=== PATIENT | male | born 1995 | race Caucasian/White ===

== ENCOUNTER 2020-04-02 20:50 | Emergency (ER) | payer OTHER, SELFPAY ==
[2020-04-02 20:50] VITALS: BP 94/65; PULSE 90; RESP 20; TEMP 36.7; O2SAT 96; BMI 25.8
--- NOTE | 2020-04-02 21:12 | DI.RAD.S_ITS ---
PROCEDURE: XR CHEST 2V INDICATIONS: cough TECHNIQUE: 2 views of the chest were acquired. COMPARISON: None. FINDINGS: Surgical changes and devices: None. Lungs and pleura: Lungs are clear. No pleural effusions or pneumothorax. Mediastinum: Mediastinal contours are normal. Heart size is normal. Bones and chest wall: No suspicious bony abnormalities. Soft tissues appear unremarkable. IMPRESSION: No acute cardiopulmonary pathology. Dictated by: Clifton Goetz M.D. on 04/02/2020 at 22:02 Approved by: Clifton Goetz M.D. on 04/02/2020 at 22:02
--- NOTE | 2020-04-02 22:39 | ED_ITS ---
HPI - URI/Sore Throat General Chief Complaint: Upper Respiratory Symptoms Stated Complaint: headache, cough Time Seen by Provider: 04/02/20 21:13 Source: patient Mode of arrival: Ambulatory History of Present Illness HPI Narrative: 24-year-old gentleman with a history of mild tobacco abuse presents with a week of cough not getting better. He was seen at an urgent care clinic yesterday and prescribed antibiotics for which he has now had 2 doses. Describes his cough as dry and irritating and often waking him up at night. He does not give a significant history reactive airway disease as a child and does not use inhalers currently. Related Data Previous Rx's Medication Instructions Recorded prednisone 20 mg PO DAILY #7 tab 04/02/20 Allergies Allergy/AdvReac Type Severity Reaction Status Date / Time No Known Drug Allergies Allergy Verified 04/02/20 21:49 Review of Systems Review of Systems Narrative: Pertinent positive and negative findings as per HPI Remainder of review of systems is otherwise unremarkable for Constitutional: Fevers, chills, weakness ENT: No sore throat, neck pain, ear pain CV: Chest pain, palpitations, GI: Nausea, vomiting, diarrhea, : Dysuria, hematuria, flank pain MS: Muscle weakness, numbness, joint swelling or warmth Skin: Rashes, nonhealing lesions Patient History Social History Smoking Status: Current some day smoker Smoking Status: Current some day smoker Substance Use Type: does not use Exam Narrative Exam Narrative: General: Healthy appearing, in no acute distress. Able to give a complete and coherent history. Well-nourished well-developed HEENT: Moist mucous membranes, normal sclera with reactive pupils, Respiratory: Lungs with scattered mild wheeze and airway popping noted more in the right axilla without over rhonchi. Full and symmetrical air movement Cardiac: Regular rate and rhythm no murmurs no bruits Abdomen: Soft nontender good bowel tones, no flank pain Skin: Warm and dry, no rashes Neurologic: Grossly neurologically intact with no obvious asymmetries or abnormalities Extremities: No trauma, well perfused Psych: Cooperative, appropriate insight and affect Initial Vital Signs Initial Vital Signs: Vital Signs Temperature 98.0 F 04/02/20 20:50 Pulse Rate 90 04/02/20 20:50 Respiratory Rate 20 04/02/20 20:50 Blood Pressure 94/65 04/02/20 20:50 Pulse Oximetry 96 04/02/20 20:50 Course Orders Ordered: ED Orders 04/02/20 21:12 Chest [XR chest 2V] Stat Discontinued Medications Prednisone (Deltasone) 40 mg PO NOW ONE Stop: 04/02/20 22:36 Last Admin: 04/02/20 22:41 Dose: 40 mg Documented by: [email or web address] Vital Signs Vital signs: Vital Signs - 8 hr 04/02/20 20:50 Temperature 98.0 F Pulse Rate 90 Respiratory Rate 20 Blood Pressure 94/65 Pulse Oximetry 96 [facility] - URI/Sore Throat Imaging Data Chest x-ray: Radiologist's Impression: FINDINGS: Surgical changes and devices: None. Lungs and pleura: Lungs are clear. No pleural effusions or pneumothorax. Mediastinum: Mediastinal contours are normal. Heart size is normal. Bones and chest wall: No suspicious bony abnormalities. Soft tissues appear unremarkable. IMPRESSION: No acute cardiopulmonary pathology. Dictated by: Clifton Goetz M.D. on 04/02/2020 at 22:02 [facility] Narrative Medical decision making narrative: 24-year-old gentleman likely with viral upper respiratory syndrome that is [place] id negative. He was started on antibiotics by an outside provider so will asking to go ahead and finish the is a started. With this scattered wheezing and popping throughout I suspect that there is a very mild reactive airway disease component of will add 7 days of prednisone to his already prescribed antibiotics. There is no evidence of severe pneumonia, pleural effusion, sepsis or cardiac syndrome. He is safe for home discharge at this time. Discharge Plan Departure Patient Disposition: Home Clinical Impression: Bronchitis RAD (reactive airway disease) Qualifiers: Asthma severity: mild Asthma persistence: unspecified Qualified Code(s): J45.909 - Unspecified asthma, uncomplicated Instructions: DI for Bronchiolitis Activity Restrictions/Additional Instructions: Thank you for coming in today Your chest x-ray does not show an obvious pneumonia. There does appear to be a moderate amount of inflammation that goes along with the dry cough and probable mild reactive airway component to this upper respiratory infection. Please finish the antibiotics that you are already started. To this, please add 20 mg of prednisone daily for 7 days. This will help with the inflammation and hopefully make that dry cough less irritable for you. If you have worsening symptoms, please feel free to return to the emergency department. I hope you heal quickly. Prescriptions: New prednisone 20 mg tablet 20 mg PO DAILY Qty: 7 RF: 0
[2020-04-02] MEDS: predniSONE 20 MG TABLET 40 MG PO (22:41)
== END 2020-04-02 22:43 | disposition home or self-care (01) ==
PROVIDERS: Emergency Provider Emergency Medicine
DX: J45.909 Unspecified asthma, uncomplicated (principal)
CPT/HCPCS: 71046; 99283

== ENCOUNTER 2020-04-16 10:14 | Emergency (ER) | payer OTHER, SELFPAY ==
[2020-04-16] VITALS (8 sets, daily range): BP systolic 115–127; BP diastolic 66–84; PULSE 75–120; RESP 14–22; TEMP 36.6; O2SAT 93–98; BMI 26.2
--- NOTE | 2020-04-16 10:38 | ED_ITS ---
HPI - SOB/Dyspnea General Chief Complaint: Shortness of Breath/Dyspnea Stated Complaint: upper resp issue Time Seen by Provider: 04/16/20 10:21 Source: patient Mode of arrival: Ambulatory Limitations: no limitations History of Present Illness HPI Narrative: This is a 24-year-old male who comes to the emergency department with several weeks of cough and intermittent shortness of breath. Patient was seen here on April 02 he states had a week or so of cough with some chest congestion had a COVID test and chest x-ray and was discharged home with steroids. He had already been started on antibiotics and was recommended to continue those which he also completed. Patient states while he was taking steroids he has felt significantly better. He finished those several days ago and has started to notice that he continues to have cough, it is mildly productive typically with clearish white sputum. He has also noted that it is worse when he lays flat at night and that he feels more short of breath when he lays flat at night. He states that when he is up and ambulating occasionally he will feel short of breath but typically he does not. He has not had any fevers. He has had some mild nasal congestion. He does think he has had some postnasal drip but it is also intermittent. He does not associated with the cough. Patient has not had any other GI or urinary symptoms. He has not had any swelling in his upper lower extremities. He denies any other medical issues, no prior asthma or pulmonary issues. He denies any prior surgeries. He does smoke a cigarette in the morning and the evening. Denies regular alcohol use or any illicit drugs. No family history of cardiac, pulmonary embolic. He has not had any long distance travel, prolonged immobilization. He has had several coworkers who had somewhat similar symptoms at varying times. 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 Related Data Previous Rx's Medication Instructions Recorded prednisone 20 mg PO DAILY #7 tab 04/02/20 loratadine [Claritin] 10 mg PO DAILY #20 tab 04/16/20 Allergies Allergy/AdvReac Type Severity Reaction Status Date / Time No Known Drug Allergies Allergy Verified 04/02/20 21:49 Review of Systems Review of Systems ROS Unobtainable: All systems reviewed & are unremarkable except as noted in HPI and below Patient History Social History Smoking Status: Current some day smoker Smoking Status: Current some day smoker Substance Use Type: does not use Exam Narrative Exam Narrative: GEN: well nourished, well appearing male, alert and oriented x 3, patient appears to be in mild distress. HEENT: Atraumatic, pupils are equal round reactive to light, extraocular movements are intact, nares are clear, TMs are clear with no fluid, there is no conjunctival pallor. Throat is clear without any exudates, or tonsillar enl argement or uvular deviation, patient has some very mild erythema with cobblestoning. HEART: Regular rate and rhythm without murmur, clicks, rubs. Pulses are equal in upper and lower extremities LUNGS:Lungs clear to auscultation, no wheezes, rales, crackles, chest moves symmetrically, no tachypnea accessory muscle use. Speaks in full sentences. ABD:bowel sounds normal, soft, non-tender, no guarding, rebound, rigidity, no masses noted, no hepatosplenomegaly MSCL: Non-tender, no muscle atrophy, muscles strength 5/5 upper and lower extremities, full range of motion, normal gait NEURO:CN 2-12 intact, sensation normal SKIN: No rash, erythema or other skin changes noted. Initial Vital Signs Initial Vital Signs: Vital Signs Pulse Rate 114 H 04/16/20 10:18 Pulse Oximetry 95 04/16/20 10:18 Scores GCS [place] coma scale eye opening: Spontaneous [place] coma scale verbal response: Orientated [place] coma scale motor response: Obey commands [place] coma scale total score: 15 qSOFA Altered Mental Status (GCS <15): No Respiratory rate greater than/equal to 22: No Systolic blood pressure less than or equal to 100: No qSOFA Total: 0 0-1 Not High Risk 1-3 High risk Course Orders Ordered: ED Orders 04/16/20 10:50 Consult to Respiratory Therapy Evaluate & Treat XR chest 1V Stat EKG-12 Lead Stat 04/16/20 11:12 Basic Metabolic Panel Stat COVID19 -ED/INPAT/OR/L&D Stat Complete Blood Count AUTO DIFF Stat D Dimer Stat Lactate (Lactic Acid) Stat Magnesium Stat NT-proBNP (BNP-Adult 18+) Stat Partial Thromboplastin Time Stat Procalcitonin Stat Prothrombin Time INR Stat Troponin & CK Cardiac Panel Stat 04/16/20 11:43 Blood Culture Stat Discontinued Medications Sodium Chloride (Normal Saline 0.9%) 1,000 mls @ 1,000 mls/hr IV BOLUS ONE Stop: 04/16/20 11:49 Last Admin: 04/16/20 11:56 Dose: Not Given Documented by: ANA LAURA Sodium Chloride (Normal Saline 0.9%) 2,190 mls @ 730 mls/hr 30 ml/kg infuse over 3 hr (2190 ml) IV NOW ONE Stop: 04/16/20 13:52 Last Infusion: 04/16/20 12:45 Dose: 0 mls/hr Documented by: ANA LAURA Admin: 04/16/20 11:25 Dose: 730 mls/hr Documented by: ANA LAURA Vital Signs Vital signs: Vital Signs - 8 hr 04/16/20 11:00 04/16/20 11:30 04/16/20 12:00 Pulse Rate 92 H 93 H 75 Respiratory Rate 22 20 14 Blood Pressure 118/80 127/74 115/67 Pulse Oximetry 95 98 95 04/16/20 12:30 Pulse Rate 76 Respiratory Rate 16 Blood Pressure 118/72 Pulse Oximetry 93 MDM - SOB/Dyspnea Lab Data Result diagrams: 04/16/20 11:12 04/16/20 11:12 Labs: Lab Results 04/16/20 04/16/20 04/16/20 Range/Units 11:12 11:12 11:12 WBC 9.4 (4.5-11.0) X10^3/uL RBC 5.50 (4.5-5.9) X10^6/uL Hgb 15.3 (13.5-17.5) g/dL Hct 45.9 (41-53) % MCV 83.3 (80-100) fL MCH 27.8 (26-34) PG MCHC 33.4 (30-36) % RDW 13.5 (11.6-14.8) % Plt Count 247 (150-400) X10^3/uL Neut % (Auto) 54.1 (50-75) % Lymph % (Auto) 28.3 (25-40) % [place] % (Auto) 6.9 (3-14) % Eos % (Auto) 9.8 H (2-4) % Baso % (Auto) 0.9 (0-2) % Neut # (Auto) 5100 (6152-4151) /uL Lymph # (Auto) 2700 (6561-3944) /uL [place] # (Auto) 600 (0-900) /uL Eos # (Auto) 900 H (0-450) /uL Baso # (Auto) 100 (0-100) /uL PT 11.5 (10.1-12.7) SECONDS INR 1.0 (0.9-1.3) APTT 36 (26.4-36.2) SECONDS D-Dimer < 200 (<230) ng/mL Sodium 140 (137-145) mmol/L Potassium 3.8 (3.4-5.1) mmol/L Chloride 105 (98-107) mmol/L Carbon Dioxide 28 (22-32) mmol/L BUN 10 (9-20) mg/dL Creatinine 0.69 (0.66-1.25) mg/dL Estimated GFR > 60.0 (>60) mL/min BUN/Creatinine Ratio 14.5 (6-22) Glucose 88 (70-100) mg/dL Lactate (0.7-2.1) mmol/L Calcium 9.5 (8.4-10.2) mg/dL Magnesium 2.0 (1.6-2.3) mg/dL Total Creatine Kinase 71 (55-170) U/L CK-MB (CK-2) TNP CK-MB (CK-2) Rel Index TNP Troponin I < 0.012 (0.01-0.034) ng/mL NT-Pro-B Natriuret Pep < 11 (<125) pg/mL Procalcitonin (<0.5) ng/mL COVID-19 PCR (Negative) 04/16/20 04/16/20 04/16/20 Range/Units 11:12 11:12 11:12 WBC (4.5-11.0) X10^3/uL RBC (4.5-5.9) X10^6/uL Hgb (13.5-17.5) g/dL Hct (41-53) % MCV (80-100) fL MCH (26-34) PG MCHC (30-36) % RDW (11.6-14.8) % Plt Count (150-400) X10^3/uL Neut % (Auto) (50-75) % Lymph % (Auto) (25-40) % [place] % (Auto) (3-14) % Eos % (Auto) (2-4) % Baso % (Auto) (0-2) % Neut # (Auto) (7925-0522) /uL Lymph # (Auto) (2882-7043) /uL [place] # (Auto) (0-900) /uL Eos # (Auto) (0-450) /uL Baso # (Auto) (0-100) /uL PT (10.1-12.7) SECONDS INR (0.9-1.3) APTT (26.4-36.2) SECONDS D-Dimer (<230) ng/mL Sodium (137-145) mmol/L Potassium (3.4-5.1) mmol/L Chloride (98-107) mmol/L Carbon Dioxide (22-32) mmol/L BUN (9-20) mg/dL Creatinine (0.66-1.25) mg/dL Estimated GFR (>60) mL/min BUN/Creatinine Ratio (6-22) Glucose (70-100) mg/dL Lactate 1.3 (0.7-2.1) mmol/L Calcium (8.4-10.2) mg/dL Magnesium (1.6-2.3) mg/dL Total Creatine Kinase (55-170) U/L CK-MB (CK-2) CK-MB (CK-2) Rel Index Troponin I (0.01-0.034) ng/mL NT-Pro-B Natriuret Pep (<125) pg/mL Procalcitonin < 0.05 (<0.5) ng/mL COVID-19 PCR Negative (Negative) Imaging Data Chest x-ray: Radiologist's Impression: Chan Vera Elliott 24 M [address] [address] XRay Report Signed Patient: Chan Vera AMR#: [id number] : 1995Acct:[id number] Age/Sex: 24 / MDate of Service: 04/16/20 Loc: ED Accession Number: [id number] Procedure: XR chest 1V Ordering Provider: Mank,Adrienne C D.O. PROCEDURE: XR CHEST 1V INDICATIONS: SOB, cough for 3 weeks, not improving, tachy TECHNIQUE: One view of the chest was acquired. COMPARISON: [facility], CR, XR CHEST 2V, 04/02/2020, 21:37. FINDINGS: Surgical changes and devices: None. Lungs and pleura: Lungs are clear. No pleural effusions or pneumothorax. Mediastinum: Mediastinal contours appear normal. Heart size is normal. Bones and chest wall: No suspicious bony lesions. Overlying soft tissues appear unremarkable. IMPRESSION: No acute cardiopulmonary abnormality. Dictated by: Terell Hathaway M.D. on 04/16/2020 at 11:21 Approved by: Terell Hathaway M.D. on 04/16/2020 at 11:21 ECG Data Attestation: I personally reviewed and interpreted this ECG as follows: Prior ECG tracings: not available for review Interpretation: Sinus rhythm rate of 78 ID, 120 QRS of 98 QTC of 382. Elevation in lead 2 but no other contiguous leads appreciated. Otherwise normal EKG. No prior EKG available for review. MDM Narrative Medical decision making narrative: Patient arrives he looks well but it is noted that he is tachycardic immediately after ambulating, he quickly returns to a normal range in the 80s to 90s but even during evaluation while he is speaking his heart rate will occasionally pop up above 100. Plan for imaging, EKG and labs as patient has elevated HR. During the rest of the stay patients vitals have been appropriate with no additional peaks in HR. Plan to start OTC antihistamine for possible post nasal drip and have patient follow up with medical at the [facility]. I would not give additional prednisone or antibiotics at this time. Discharge Plan Departure Patient Disposition: Home Clinical Impression: Bronchitis Discharge Date/Time: 04/16/20 12:48 Instructions: DI for Cough -- Adult Activity Restrictions/Additional Instructions: I would recommend following up in the next several days for recheck. Your labs and imaging do not show any major abnormalities today. I also recommend taking a claritin 10mg once daily, discuss with your medical team but I would not anticipate this would be restricted medication. Return to the ER if you have fevers, new shortness of breath, chest pain, lightheadedness or passing out, persistent vomiting, swelling in her extremities or other new or concerning symptoms. Prescriptions: New loratadine [Claritin] 10 mg tablet 10 mg PO DAILY Qty: 20 RF: 0 No Action prednisone 20 mg tablet 20 mg PO DAILY Qty: 7 RF: 0
--- NOTE | 2020-04-16 10:50 | DI.RAD.S_ITS ---
PROCEDURE: XR CHEST 1V INDICATIONS: SOB, cough for 3 weeks, not improving, tachy TECHNIQUE: One view of the chest was acquired. COMPARISON: [facility], CR, XR CHEST 2V, 04/02/2020, 21:37. FINDINGS: Surgical changes and devices: None. Lungs and pleura: Lungs are clear. No pleural effusions or pneumothorax. Mediastinum: Mediastinal contours appear normal. Heart size is normal. Bones and chest wall: No suspicious bony lesions. Overlying soft tissues appear unremarkable. IMPRESSION: No acute cardiopulmonary abnormality. Dictated by: Terell Hathaway M.D. on 04/16/2020 at 11:21 Approved by: Terell Hathaway M.D. on 04/16/2020 at 11:21
[2020-04-16 11:24] LABS: Add Manual Diff / Slide Review NO; Basophils Absolute Auto 100 /uL (0-100); Basophils Percent Auto 0.9 % (0-2); Eosinophils Absolute Auto 900 /uL (0-450); Eosinophils Percent Auto 9.8 % (2-4); Hematocrit 45.9 % (41-53); Hemoglobin 15.3 g/dL (13.5-17.5); Lymphocytes Absolute Auto 2700 /uL (1100-4500); Lymphocytes Percent Auto 28.3 % (25-40); Mean Corpuscular HGB Conc 33.4 % (30-36); Mean Corpuscular Hemoglobin 27.8 PG (26-34); Mean Corpuscular Volume 83.3 fL (80-100); Monocytes Absolute Auto 600 /uL (0-900); Monocytes Percent Auto 6.9 % (3-14); Neutrophils Absolute Auto 5100 /uL (1500-7000); Neutrophils Percent Auto 54.1 % (50-75); Platelet Count 247 X10^3/uL (150-400); Red Cell Distribution Width 13.5 % (11.6-14.8); White Blood Cell Count 9.4 X10^3/uL (4.5-11.0)
[2020-04-16] MEDS: SODIUM CHLORIDE 0.9% 2,190 ML 730 ML IV (11:25)
[2020-04-16 11:29] LABS: Prothrombin Time 11.5 SECONDS (10.1-12.7)
[2020-04-16 11:32] LABS: D Dimer < 200 ng/mL (<230); PTT Partial Thromboplastin Tim 36 SECONDS (26.4-36.2)
[2020-04-16 11:34] LABS: BUN Creatinine Ratio 14.5 (6-22); Blood Urea Nitrogen 10 mg/dL (9-20); Calcium 9.5 mg/dL (8.4-10.2); Carbon Dioxide 28 mmol/L (22-32); Chloride 105 mmol/L (98-107); Creatine Kinase 71 U/L (55-170); Estimated Glomerular Filt Rate > 60.0 mL/min (>60); Glucose 88 mg/dL (70-100); HEMOLYSIS < 15 (0-50); Lactate (Lactic Acid) 1.3 mmol/L (0.7-2.1); Potassium 3.8 mmol/L (3.4-5.1); Sodium 140 mmol/L (137-145)
[2020-04-16 11:37] LABS: COVID19 -Nasal RAPID Negative (Negative)
[2020-04-16 11:46] LABS: NT-proBNP (BNP-Adult 18+) < 11 pg/mL (<125); Troponin I < 0.012 ng/mL (0.01-0.034)
[2020-04-16 11:49] LABS: Procalcitonin < 0.05 ng/mL (<0.5)
== END 2020-04-16 12:48 | disposition home or self-care (01) ==
PROVIDERS: Emergency Provider Emergency Medicine
DX: J40 Bronchitis, not specified as acute or chronic (principal); R05 Cough; R00.0 Tachycardia, unspecified
CPT/HCPCS: 36415; 71045; 80048; 82550; 83605; 83735; 83880; 84145; 84484; 85025; 85379; 85610; 85730; 87040; 87635; 93005; 93010; 96360; 99284

== ENCOUNTER 2020-04-18 04:24 | Emergency (ER) | payer OTHER, SELFPAY ==
[2020-04-18 04:39] VITALS: BP 114/77; PULSE 109; RESP 19; TEMP 36.7; O2SAT 94; BMI 26.5
--- NOTE | 2020-04-18 04:56 | ED.GENADULT ---
HPI - General Adult General Chief complaint: Upper Respiratory Symptoms Stated complaint: Upper resp infection not improving Time Seen by Provider: 04/18/20 04:35 Source: patient Mode of arrival: Ambulatory Limitations: no limitations History of Present Illness HPI narrative: Patient is an otherwise healthy 24-year-old active [employer] male here for evaluation of continued cough and shortness of breath. Patient's course has included a visit to his medical department where he was given a prescription for amoxicillin and Tylenol. He was subsequently seen here in the emergency department afterwards and was given a course of steroids. Patient states that during the course of steroids he thought that his symptoms improved somewhat when the steroids stopped the symptoms returned. He subsequently return to the emergency department were he was then started on Claritin. He has been on Claritin for 2 days now without any improvement. He has had chest x-rays which did not show any definitive pneumonia. He has had testing for COVID-19 which has been negative. He does occasionally smoke. Has not had any risk factors for pulmonary embolism. Returns today because he states that he cannot sleep because of the cough. Total like the symptoms have been greater than 2 weeks. Related Data Previous Rx's Medication Instructions Recorded prednisone 20 mg PO DAILY #7 tab 04/02/20 loratadine [Claritin] 10 mg PO DAILY #20 tab 04/16/20 azithromycin See Rx Instructions .ROUTE 04/18/20 .COMPLEX #6 tab benzonatate [Tessalon Perles] 100 mg PO TID PRN #14 cap 04/18/20 Allergies Allergy/AdvReac Type Severity Reaction Status Date / Time No Known Drug Allergies Allergy Verified 04/02/20 21:49 Review of Systems Constitutional Constitutional: Denies fever(s) and Denies headache(s) ENT Ears, Nose, Mouth, and Throat: Denies headache(s) Cardiovascular Cardiovascular: Denies chest pain and Reports dyspnea Respiratory Respiratory: Reports cough, Denies hemoptysis and Reports dyspnea Gastrointestinal Gastrointestinal: Denies abdominal pain, Denies nausea and Denies vomiting Genitourinary Genitourinary: Denies dysuria Genitourinary: Denies dysuria Musculoskeletal Musculoskeletal: Denies arthralgias and Denies myalgias Integumentary/Breasts Skin/Breast: Denies rash Neurologic Neurologic: Denies behavioral changes and Denies headache(s) Psychiatric Psychiatric: Denies behavioral changes Hematologic/Lymphatic Hematologic/Lymphatic: Denies easy bleeding and Denies easy bruising Patient History Medical History Bronchitis (Inactive) Social History Smoking Status: Current some day smoker Smoking Status: Current some day smoker Substance Use Type: does not use Exam Initial Vital Signs Initial Vital Signs: Vital Signs Temperature 98.0 F 04/18/20 04:39 Pulse Rate 109 H 04/18/20 04:39 Respiratory Rate 19 04/18/20 04:39 Blood Pressure 114/77 04/18/20 04:39 Pulse Oximetry 94 04/18/20 04:39 Const General: cooperative and comfortable Limitations: mental status not altered HENMT Head: normal to inspection and normocephalic Resp Effort & Inspection: cough, not labored and tachypneic Auscultation: rhonchi Cardio Rate: tachycardic Rhythm: regular rhythm GI Inspection: non-distended Palpation: soft Skin Lesions: no lesions Rashes: no rashes Neuro General: patient alert, patient awake and patient oriented x3 Cognition: normal cognition Speech: speech normal Extrem General: normal to inspection and capillary refill normal Psych Appearance: grossly normal and well kempt Course Orders Ordered: ED Orders 04/18/20 04:57 RT Consult Eval and Treat Now Discontinued Medications Albuterol (Ventolin Hfa Prepack) 1 box MISC SEEINSTR ONE Stop: 04/18/20 04:57 Last Admin: 04/18/20 05:20 Dose: 1 box Documented by: CTRLD Albuterol (Ventolin) 2.5 mg INH NOW ONE Stop: 04/18/20 05:05 Last Admin: 04/18/20 05:20 Dose: 2.5 mg Documented by: [email or web address] Vital Signs Vital signs: Vital Signs - 8 hr 04/18/20 04:39 04/18/20 05:16 Temperature 98.0 F Pulse Rate 109 H 101 H Respiratory Rate 19 16 Blood Pressure 114/77 Pulse Oximetry 94 98 Medical Decision Making MDM Narrative Medical decision making narrative: Patient is not in any respiratory distress but is coughing quite a bit and does have coarse sounds bilaterally. In general he does not have a productive cough he states sometimes he does produce some mucus. It appears over the past 2 weeks thing that helped him the most was the steroids. He has only been on Claritin for 2 days who informed him that that is too short of a time to state that clear to in his unhelpful in his current condition. He has had chest x-rays. I feel that pulmonary embolism is unlikely given his presentation. I feel that we can hold on further radiologic studies for. His symptoms have been going on for greater than 2 weeks and an atypical pneumonia is a possibility. Starting him on azithromycin is not unreasonable however I do feel that it is probably unlikely to improve his symptoms however very little up to this point seems to be helping him any is having quite a bit of trouble sleeping at night. I will start him on azithromycin. Will also send him home with Tessalon Perles. Two days ago patient was tested for COVID-19 and was negative. I did order a albuterol inhaler and spacer however respiratory therapy thought that a nebulizer would be more beneficial. I informed them that this was an aerosolized and procedure and could potentially exposed him to coronavirus. Respiratory therapy expressed understanding this and thought that a nebulizer would be more appropriate. Will send home with an albuterol inhaler. 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 He was given return precautions. Discharge Plan Departure Patient Disposition: Home Clinical Impression: Cough Instructions: Cough Activity Restrictions/Additional Instructions: I do recommend that you continue with the Claritin. Given the length of your symptoms and the fact that you have not been improving with a treatments up to this point treating you with a course of an antibiotic called azithromycin to treat any atypical pneumonias is not unreasonable. Please fill the prescription and start taking it as directed. Use the albuterol inhaler as directed. Also take the Tessalon Perles, which is a cough medicine, also as directed as needed. 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 Please return to the emergency department for any new or worsening symptoms Prescriptions: New azithromycin 250 mg tablet See Rx Instructions .ROUTE .COMPLEX Qty: 6 RF: 0 benzonatate [Tessalon Perles] 100 mg capsule 100 mg PO TID PRN (Reason: cough) Qty: 14 RF: 0 No Action prednisone 20 mg tablet 20 mg PO DAILY Qty: 7 RF: 0 loratadine [Claritin] 10 mg tablet 10 mg PO DAILY Qty: 20 RF: 0
[2020-04-18 05:16] VITALS: PULSE 101; RESP 16; O2SAT 98
[2020-04-18] MEDS: ALBUTEROL 2.5 MG/3 ML NEB (ADULT) INH (05:20)
[2020-04-18] MEDS: ALBUTEROL HFA PREPACK 1 BOX MISC (05:20)
[2020-04-18 05:34] VITALS: BP 115/78; PULSE 100; RESP 18; O2SAT 98
== END 2020-04-18 05:35 | disposition home or self-care (01) ==
PROVIDERS: Emergency Provider Emergency Medicine
DX: R05 Cough (principal); R06.02 Shortness of breath
CPT/HCPCS: 94640; 99283; J7613

== ENCOUNTER 2020-06-24 10:50 | Emergency (ER) | payer OTHER, SELFPAY ==
[2020-06-24 10:55] VITALS: BP 107/80; PULSE 81; RESP 16; TEMP 36.6; O2SAT 100; BMI 25.8
--- NOTE | 2020-06-24 11:14 | ED.GENADULT ---
HPI - General Adult General Stated complaint: re-occuring chest tightness/congestion x3 days Time Seen by Provider: 06/24/20 11:13 History of Present Illness HPI narrative: 24-year-old active need be, otherwise healthy gentleman presents with 3 days of intermittent chest tightness. He had a similar episode in March that responded nicely to albuterol and prednisone and has not had problems since. He describes a dry cough without fevers. Does not feel ill but does feel like he is not getting a complete breath. No chest pain, dyspnea, abdominal pain, flank pain. Has not noticed any exercise induced symptoms. He describes no prior history of asthma. He does note that he has been in the [facility] for about a year and this is his 1st winter in the area. Related Data Previous Rx's Medication Instructions Recorded prednisone 20 mg PO DAILY #7 tab 04/02/20 loratadine [Claritin] 10 mg PO DAILY #20 tab 04/16/20 azithromycin See Rx Instructions .ROUTE 04/18/20 .COMPLEX #6 tab benzonatate [Tessalon Perles] 100 mg PO TID PRN #14 cap 04/18/20 albuterol sulfate 2 puff INHALATION QID PRN #8.5 g 06/24/20 Allergies Allergy/AdvReac Type Severity Reaction Status Date / Time No Known Drug Allergies Allergy Verified 04/02/20 21:49 Review of Systems Review of Systems Narrative: Remainder of review of systems including constitutional, ENT, cardiovascular, respiratory, GI, , musculoskeletal, skin, neurologic and psychiatric systems reviewed and are unremarkable except as noted in HPI. Patient History Medical History Reactive airway disease Social History Smoking Status: Current some day smoker Smoking Status: Current some day smoker Substance Use Type: does not use Exam Narrative Exam Narrative: General: Healthy appearing, in no acute distress. Able to give a complete and coherent history. Well-nourished well-developed HEENT: Moist mucous membranes, normal sclera with reactive pupils Respiratory: Lungs with minor to scattered wheezing and pops that improved with deep breathing. No rhonchi no rales. Full and symmetrical air movement Cardiac: Regular rate and rhythm no murmurs no bruits Abdomen: Soft nontender good bowel tones, no flank pain Skin: Warm and dry, no rashes Neurologic: Grossly neurologically intact with no obvious asymmetries or abnormalities Extremities: No trauma, well perfused Psych: Cooperative, appropriate insight and affect Initial Vital Signs Initial Vital Signs: Vital Signs Pulse Rate 99 H 06/24/20 12:04 Respiratory Rate 16 06/24/20 12:04 Pulse Oximetry 96 06/24/20 12:04 Course Orders Ordered: ED Orders 06/24/20 10:58 EKG-12 Lead Stat 06/24/20 11:05 COVID19 Stat Discontinued Medications Albuterol (Albuterol Hfa Prepack) 1 box MISC SEEINSTR ONE Stop: 06/24/20 11:43 Last Admin: 06/24/20 11:57 Dose: 1 box Documented by: JUAN Vital Signs Vital signs: Vital Signs - 8 hr 06/24/20 12:04 Pulse Rate 99 H Respiratory Rate 16 Pulse Oximetry 96 Medical Decision Making Medical Records Medical records reviewed: Yes I reviewed the patient's medical records. Lab Data Lab results reviewed: Yes I reviewed the patient's lab results. Labs: Lab Results 06/24/20 Range/Units 11:05 SARS-CoV-2 (PCR) Negative (Negative) MDM Narrative Medical decision making narrative: Improvement after albuterol MDI with classic dry reactive airway type cough. Suspect he is having mild reactive airway and it may be related to seasonal allergens as this is his 1st winter in the [facility]. Will give him a prescription for albuterol [place] No evidence of acute infectious disease, pneumothorax, reactive airway disease or pulmonary embolism. His COVID screen was negative today he is safe for home discharge Discharge Plan Departure Patient Disposition: Home Clinical Impression: Reactive airway disease Qualifiers: Asthma severity: mild Asthma persistence: intermittent Asthma complication type: with acute exacerbation Qualified Code(s): J45.21 - Mild intermittent asthma with (acute) exacerbation Instructions: DI for Reactive Airway Disease-Adult Activity Restrictions/Additional Instructions: Thank you for coming in today I suspect that you are having mild reactive airway disease to some likely environmental allergen. The albuterol work nicely for you in the emergency department and you can continue to use this at home. Two puffs every 6 hours as needed. Please follow-up with a doc [facility] [employer] so that this can be noted as part of your record and it will make it easier few to get refills of your albuterol should you need them. I wish you the best Prescriptions: New albuterol sulfate 90 mcg/actuation HFA aerosol inhaler 2 puff inhalation QID PRN (Reason: shortness of breath or wheezing) Qty: 8.5 RF: 0 No Action prednisone 20 mg tablet 20 mg PO DAILY Qty: 7 RF: 0 loratadine [Claritin] 10 mg tablet 10 mg PO DAILY Qty: 20 RF: 0 azithromycin 250 mg tablet See Rx Instructions .ROUTE .COMPLEX Qty: 6 RF: 0 benzonatate [Tessalon Perles] 100 mg capsule 100 mg PO TID PRN (Reason: cough) Qty: 14 RF: 0
[2020-06-24 11:46] LABS: COVID19 -Nasal RAPID Negative (Negative)
[2020-06-24] MEDS: ALBUTEROL HFA PREPACK 1 BOX MISC (11:57)
[2020-06-24 12:04] VITALS: PULSE 99; RESP 16; O2SAT 96
[2020-06-24 12:29] VITALS: BP 120/67; PULSE 95; RESP 16; O2SAT 96
== END 2020-06-24 12:29 | disposition home or self-care (01) ==
PROVIDERS: Emergency Provider Emergency Medicine
DX: J45.21 Mild intermittent asthma with (acute) exacerbation (principal); Z20.822 Contact with and (suspected) exposure to COVID-19
CPT/HCPCS: 87635; 93005; 94640; 99282; C9803

== ENCOUNTER 2021-07-15 20:01 | Emergency (ER) | payer OTHER, SELFPAY ==
[2021-07-15 20:09] VITALS: BP 118/87; PULSE 83; RESP 16; TEMP 36.6; O2SAT 98; BMI 28.1
--- NOTE | 2021-07-15 20:31 | ED_ITS ---
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 He and another person he lives with have felt various upper respiratory symptoms over the past 2 days including body aches, nasal congestion, sore throat and hacking cough. He has had no measured fever but has felt chills and body ache. He denies nausea, vomiting or diarrhea. He denies exposure to persons known or suspected of having COVID Related Data Previous Rx's Medication Instructions Recorded prednisone 20 mg tablet 20 mg PO DAILY #7 tab 04/02/20 loratadine 10 mg tablet (Claritin) 10 mg PO DAILY #20 tab 04/16/20 azithromycin 250 mg tablet See Rx Instructions .ROUTE 04/18/20 .COMPLEX #6 tab benzonatate 100 mg capsule 100 mg PO TID PRN #14 cap 04/18/20 ([address]) albuterol sulfate 90 mcg/actuation 2 puff INHALATION QID PRN #8.5 g 06/24/20 aerosol inhaler Allergies Allergy/AdvReac Type Severity Reaction Status Date / Time No Known Drug Allergies Allergy Verified 04/02/20 21:49 Review of Systems Review of Systems Narrative: GENERAL: See HPI HEENT: See HP RESPIRATORY: See HPI CARDIOVASCULAR: Denies chest pain, palpitations, orthopnea, edema, GASTROINTESTINAL: Denies nausea, vomiting, abdominal pain, diarrhea, constipation, melena. : Denies dysuria, frequency, incontinence, hematuria, urinary retention. MUSCULOSKELETAL: denies weakness, joint pain, or bony pain SKIN: Denies rash, skin lesions, or other NEUROLOGIC: Denies weakness, headache, numbness, change in speech, confusion, seizures, incoordination. PSYCHIATRIC: No concerning psychosocial issues. 12 point review of systems is negative except for those stated above Patient History Medical History Reactive airway disease Social History Smoking Status: Former smoker Smoking Status: Former smoker alcohol intake frequency: 0-2 drinks per day Substance Use Type: does not use Exam Initial Vital Signs Initial Vital Signs: Vital Signs Temperature 98 F 07/15/21 20:09 Pulse Rate 83 07/15/21 20:09 Respiratory Rate 16 07/15/21 20:09 Blood Pressure 118/87 07/15/21 20:09 Pulse Oximetry 98 07/15/21 20:09 Course Orders Ordered: ED Orders 07/15/21 20:15 COVID19 -Nasal swab/Pre-Proc Stat 07/15/21 20:47 Throat Culture Stat Vital Signs Vital signs: Vital Signs - 8 hr 07/15/21 20:09 07/15/21 20:32 07/15/21 21:00 Temperature 98 F Pulse Rate 83 92 H 85 Respiratory Rate 16 Blood Pressure 118/87 Pulse Oximetry 98 98 97 07/15/21 21:12 Temperature Pulse Rate 84 Respiratory Rate Blood Pressure 115/75 Pulse Oximetry 97 MDM - URI/Sore Throat Lab Data Labs: Lab Results 07/15/21 Range/Units 20:15 SARS-CoV-2 (PCR) Negative (Negative) Point of Care Testing Rapid Strep A Positive Discharge Plan Departure Patient Disposition: Home Clinical Impression: Upper respiratory infection Instructions: DI for Viral Upper Respiratory Infection -- Adult Activity Restrictions/Additional Instructions: *You have been diagnosed with [viral upper respiratory infection. Your history and physical exam are very reassuring. Your COVID test is negative. There is no suggestion that you would benefit from antibiotics or other specific therapies other than [id number] cough and cold medications. *What to do: *Please continue to take your regular medications as directed. [ ] New medication prescriptions sent to your pharmacy: [ ] [ ] New medication written as a paper prescription [ ] No new medications given *Please follow up with your primary care provider in 2-3 days, call for an appointment. Let them know you were seen in the Emergency Department and that we ask that you be seen in follow up. We will electronically transmit a record of today's note if your PCP is in our system *If you do not have a primary care provider please contact the [facility] Resource line at [phone]. They will ask some questions about your medical history and help get you set up with a doctor in the community. *Return to Emergency Department if you should have any new, worsening or concerning symptoms, such as [fever greater than 101 F, shaking chills, worsening pain, persistent vomiting or other bothersome symptoms] Prescriptions: No Action prednisone 20 mg tablet 20 mg PO DAILY Qty: 7 0RF loratadine [Claritin] 10 mg tablet 10 mg PO DAILY Qty: 20 0RF azithromycin 250 mg tablet See Rx Instructions .ROUTE .COMPLEX Qty: 6 0RF Rx Instructions: take 500 mg today (day 1), then 250 mg for 4 days (days 2-5) benzonatate [Tessalon Perles] 100 mg capsule 100 mg PO TID PRN (Reason: cough) Qty: 14 0RF albuterol sulfate 90 mcg/actuation HFA aerosol inhaler 2 puff inhalation QID PRN (Reason: shortness of breath or wheezing) Qty: 8.5 0RF
[2021-07-15 20:32] VITALS: PULSE 92; O2SAT 98
[2021-07-15 20:39] LABS: COVID19 -Nasal RAPID Negative (Negative)
[2021-07-15 21:00] VITALS: PULSE 85; O2SAT 97
[2021-07-15 21:12] VITALS: BP 115/75; PULSE 84; O2SAT 97
== END 2021-07-15 21:16 | disposition home or self-care (01) ==
PROVIDERS: Emergency Provider Emergency Medicine
DX: J06.9 Acute upper respiratory infection, unspecified (principal); Z87.891 Personal history of nicotine dependence; Z20.822 Contact with and (suspected) exposure to COVID-19
CPT/HCPCS: 87070; 87635; 87880; 99282; C9803